=== PATIENT | female | born 1955 | race Caucasian/White ===

== ENCOUNTER → 2019-06-05 | Day surgery (SDC) | payer MEDICARE ==
[~2019-06-05] MED LIST: Buffered Lidocaine 1% SYRIN* 1 ML/SYRINGE INTRADERM ONE; Bupivacaine 0.25% SDV PF* 10 ML VIAL INJ ONE; Dexamethasone IV* 4 MG/ML 1 ML (4 MG) IV SLOW PU ONE; Dexamethasone IV* 4 MG/ML 1 ML (4 MG) ONE; Dexamethasone IV* 4 MG/ML 5 ML VIAL (20 MG) ONE; Famotidine IV* 10 MG/ML 2 ML (20 mg) IV ONE; Famotidine IV* 10 MG/ML 2 ML (20 mg) ONE; Lactated Ringers 1000 ML Bag* 1,000 ML IV SCH; Lidocaine 1% INJ* 10 MG/ML 30 ML SDV ONE; Lidocaine 2.5%/Prilocain 2.5%* 5 GM TUBE ONE; Midazolam* 1 MG/ML 5 ML VIAL (5 MG) ONE; Naloxone* 0.4 MG/ML 1 ML VIAL IV PRN; Ondansetron INJ* 2 MG/ML VIAL IV PRN; Ondansetron INJ* 2 MG/ML VIAL ONE; Propofol* 10 MG/ML 20 ML BTL ONE; ceFAZolin 2 GM in NS PREMIX(*) 2 GM/100 ML BAG IVPB ONE; fentaNYL* 50 MCG/ML 2 ML VIAL (100 MCG VIAL) IV PRN; fentaNYL* 50 MCG/ML 2 ML VIAL (100 MCG VIAL) IV SLOW PU PRN; fentaNYL* 50 MCG/ML 2 ML VIAL (100 MCG VIAL) ONE; oxyCODONE/Acetamin 5/325 MG* TAB PO PRN
[2019-06-05 15:57] VITALS: BP 134/90
--- NOTE | 2019-06-05 19:27 | OP ---
CC: Dr. Godoy * DATE OF OPERATION: 06/05/19 - SDS DATE OF : 51 SERVICE: General Surgery. SURGEON: oSo Torres MD. CORE DIPPER: Linda Harper NP. ANESTHESIOLOGIST: Jordy Tirado MD. ANESTHESIA: Local and MAC anesthesia. PRE-OP DIAGNOSIS: Left breast cancer. POST-OP DIAGNOSIS: Left breast cancer. OPERATIVE PROCEDURE: Left breast needle localized lumpectomy. ESTIMATED BLOOD LOSS: Minimal, less than 10 cc. SPECIMEN: Left breast mass. INDICATIONS FOR SURGERY: Ms. Jacobo is a 63-year-old female with a history of obstructive sleep apnea, who presents with a new primary left breast cancer. She has refused standard of care treatment, which was a left mastectomy and a sentinel lymph node biopsy given that she had a prior left lumpectomy, SLNB and radiation for left breast cancer in 2002. She refused radiation, chemotherapy, or an axillary lymph node dissection as options for her care. She only wished to undergo a lumpectomy to remove the actual cancer and also would consider hormonal therapy afterwards. She had spoken to myself and Dr. Godoy, her oncologist, at length about this. She understood that she is at increased risk for recurrence and possibly by not undergoing standard of care treatment. She did give informed consent for a left breast needle localized lumpectomy. She understood the risks, benefits, and alternatives of the procedure and she wished to proceed. DESCRIPTION OF PROCEDURE: The patient was brought back to the operating room and placed on the operating table in the supine position. Sequential compression devices were placed on the bilateral lower extremities for DVT prophylaxis. The patient underwent sedation by the anesthesiologist. The radiologist had placed a wire through the lesion and the wire was clipped to approximately 2 inches outside of the breast skin. Imaging from her mammogram were displayed. After this, the left breast was prepped and draped in normal sterile fashion. Prior to beginning the procedure, a time-out was performed verifying the patient's name, MR number, and the procedure to be performed. The wire was located at approximately 5 o'clock in the lower mid breast; therefore, an approximately 4-cm incision was made surrounding the wire to include the wire as well. The skin was divided down through the subcutaneous tissue and then a cone of tissue surrounding the wire was removed and the specimen was marked with sutures as following: The short suture was at the superior border, the medium length suture was at the medial border, and the long suture was at the lateral border. Once the specimen was completely removed from the breast cavity, it was delivered to mammography where it was confirmed that the clip and the wire were all contained within the specimen; therefore, attention was turned towards closure. Hemostasis was obtained in the breast cavity. During the procedure, approximately 50 cc of local anesthesia consisting of 1% lidocaine and 0.25% Marcaine had been infiltrated into the breast. Once hemostasis was obtained, the skin was closed. The subdermal layer was closed using interrupted 3-0 Vicryl sutures. The skin was closed using a running 4-0 Monocryl suture. Sterile dressing was then placed. The patient was awoken from her anesthesia and she was taken to the PACU in stable condition. At the end of the case, all counts were correct and I was present during the entirety of the case. [id number] #: [id number] MTDD
== END | disposition home or self-care (01) ==
LOC: OR 06:51
PROVIDERS: ATTEND Surgery
DX: C50.912 Malignant neoplasm of unspecified site of left female breast (principal); Z85.3 Personal history of malignant neoplasm of breast; G47.33 Obstructive sleep apnea (adult) (pediatric); I10 Essential (primary) hypertension; E03.9 Hypothyroidism, unspecified; K21.9 Gastro-esophageal reflux disease without esophagitis; M06.9 Rheumatoid arthritis, unspecified; M79.7 Fibromyalgia; F41.8 Other specified anxiety disorders; Z86.73 Personal history of transient ischemic attack (TIA), and cerebral infarction without residual deficits
CPT/HCPCS: 77061; 88307; A9270-GY; G0279; J0690; J1100; J2250; J2405; J2704; J3010; J3490

== ENCOUNTER 2023-11-03 20:16 | Observation (INO) ==
[2023-11-03 20:48] LABS: ABS Basophils 0.1 10^3/uL (0.0-0.1); ABS Lymphocytes 0.5 10^3/uL (1.0-4.8); ABS Monocytes 0.4 10^3/uL (0.0-0.9); ABS Neutrophils 8.9 10^3/uL (1.5-7.6); ABS Nucleated RBC 0.01 10^3/ul; Eosinophil % 0.3 %; Hematocrit 38.6 % (35-45); Hemoglobin 13.3 g/dL (11.5-14.3); Lymphocyte % 4.9 %; Mean Corpuscular Hemoglobin 32.6 pg (27-33); Mean Corpuscular Hgb Conc 34.4 g/dL (31-36); Mean Corpuscular Volume 94.6 fL (80-97); Mean Platelet Volume 7.5 fL (7.5-11.2); Nucleated Red Blood Cells % 0.1 %/100WBC (0.0-0.8); Platelet Count 155 10^3/uL (150-450); Red Blood Count 4.08 10^6/uL (3.63-4.92); Red Cell Distribution Width 12.4 % (12-17); White Blood Count 9.9 10^3/uL (3.8-11.8)
[2023-11-03 21:06] LABS: Albumin 4.1 g/dL (3.2-5.2); Albumin/Globulin Ratio 1.5 (1-3); Calcium 9.7 mg/dL (8.6-10.3); Creatinine, Serum 0.77 mg/dL (0.51-0.95); Globulin 2.7 g/dL (2-4); Total Bilirubin 0.8 mg/dL (0.2-1.0); Total Protein 6.8 g/dL (6.4-8.9); eGFR CKD-EPI 83.5 (>60)
[2023-11-03 22:22] LABS: High Sensitivity Troponin 1 Hr 11 pg/mL (<15)
[2023-11-03] MEDS ORDERED: Albuterol/Ipratropium NEB.SOL (2.5/0.5 MG) 3 ML NEB.SOLN INH ONE (23:19)
[2023-11-03] MEDS ORDERED: Azithromycin 500 mg/250 ml NS 500 MG/250 ML BAG IVPB ONE (23:20)
[2023-11-03] MEDS ORDERED: cefTRIAXone 2 GM ADDV.VIAL 2 GM in NS 0.9% 100 ml BAG 100 ML IV ONE (23:20)
[2023-11-03 23:38] LABS: C Reactive Protein 68.37 mg/L (<8.01)
[2023-11-03] MEDS ORDERED: cefTRIAXone 2 gm/50 mL D5W 2 GM/50 ML BAG IV ONE (23:45)
[2023-11-04] MEDS: HYDROcodone/ACETAMIN 5/325 mg TAB PO PRN ×4 (03:33→22:26)
[2023-11-04] MEDS: Albuterol HFA INHALER 8 gm MDI INH PRN ×4 (06:17→21:57)
[2023-11-04] MEDS: SPIRIVA Respimat (tiotropium) 2.5 mcg/inh Inhaler INH SCH (08:17)
[2023-11-04] MEDS: Mometasone/Formoter 200/5 MDI INH SCH ×3 (08:17→21:58)
[2023-11-04] MEDS: CMCS:Anastrozole 1 mg TAB (NF) PO SCH (08:47)
[2023-11-04] MEDS: Enoxaparin 40 MG/0.4 ML SYR SUBCUT SCH ×2 (08:47→08:59)
[2023-11-04] MEDS ORDERED: Azithromycin 500 mg/250 ml NS 500 MG/250 ML BAG IVPB SCH ×2 (23:00)
[2023-11-04] MEDS ORDERED: cefTRIAXone 1 gm/50 mL D5W 1 GM/50 ML BAG IV SCH ×2 (23:00)
[2023-11-05] MEDS ORDERED: Azithromycin 500 mg/250 ml NS 500 MG/250 ML BAG IVPB SCH (02:00)
[2023-11-05] MEDS: Albuterol HFA INHALER 8 gm MDI INH PRN (08:26)
[2023-11-05] MEDS: Mometasone/Formoter 200/5 MDI INH SCH (08:29)
[2023-11-05] MEDS: Enoxaparin 40 MG/0.4 ML SYR SUBCUT SCH (10:08)
[2023-11-05] MEDS: CMCS:Anastrozole 1 mg TAB (NF) PO SCH (10:09)
[2023-11-05] MEDS: SPIRIVA Respimat (tiotropium) 2.5 mcg/inh Inhaler INH SCH (11:02)
[2023-11-05 17:26] VITALS: BP 141/83
== END 2023-11-05 17:25 | disposition home or self-care (01) ==
LOC: ED 20:16 → EDHOLD 20:16 → SUATTDRO 11-04 01:36 → MED 11-04 04:35
PROVIDERS: ADMIT Internal Medicine; ATTEND Student in an Organized Health Care Education/Training Program